=== PATIENT | male | born 1965 | race Caucasian/White ===

== ENCOUNTER 2017-11-01 10:20 | Emergency (ER) | payer OTHER ==
[~2017-11-01] VITALS: Ht 195.6 cm; Wt 154.5 kg
[~2017-11-01 10:20] MED LIST: LISI-586 PO
[2017-11-01 10:21] VITALS: BP 148/88; PULSE 132; RESP 20; TEMP 98; O2SAT 98
[2017-11-01] MEDS ORDERED: LISI-586 PO ×2 (10:40→13:51)
[2017-11-01] MEDS ORDERED: TRAM50TA PO (10:40)
[2017-11-01] MEDS ORDERED: SODIUM CHLOR 0.9% 1000 ML INJ 1,000 ML IV ONE ×3 (11:00→14:00)
--- NOTE | 2017-11-01 11:09 | PD ---
HPI Chief Complaint: General Weakness Time Seen by Provider: 10:48 Travel History International Travel<30 days: No Contact w/Intl Traveler<30days: No Traveled to known affect area: No History of Present Illness HPI 52-year-old male complaining generalized malaise and weakness. Patient states that the symptoms started this morning. Patient states that he had some fluid this morning however did not eat breakfast. Patient states that he has dry mouth. Patient has history of hypertension and has been taking lisinopril/HCTZ daily. Patient has history of chronic extremity pain and on tramadol. Patient states that he took tramadol this morning. Patient denies any illicit drug or alcohol abuse. Patient states that he drank alcohol last night. Patient denies any headache. Patient denies any visual change. Patient denies any chest pain or shortness of breath. Patient denies abdominal pain. Patient denies any nausea vomiting diarrhea. Patient denies any focal weakness or numbness of extremity. Patient denies any fever chills. PFSH Past Medical History Diminished Hearing: No Hypertension: Yes Influenza Vaccination: No Social History Alcohol Use: Yes (4-5 BEERS DAILY, QUIT ONE WEEK AGO) Tobacco Use: No Substance Use: Yes (OCC MARIJUANA) Allergies-Medications (Allergen,Severity, Reaction): Coded Allergies: No Known Allergies (Unverified Adverse Reaction, Unknown, 11/01/17) Reported Meds & Prescriptions Reported Meds & Active Scripts Active Reported Zestoretic (Lisinopril-Hctz) 20-12.5 Mg Tab 1 Tab PO DAILY Tramadol (Tramadol HCl) 50 Mg Tab 50 Mg PO Q6H PRN Review of Systems General / Constitutional: No: Fever Eyes: No: Visual changes HENT: No: Headaches Cardiovascular: No: Chest Pain or Discomfort Respiratory: No: Shortness of Breath Gastrointestinal: No: Abdominal Pain Genitourinary: No: Dysuria Musculoskeletal: No: Pain Skin: No Rash Neurologic: No: Weakness Psychiatric: No: Depression Endocrine: No: Polydipsia Hematologic/Lymphatic: No: Easy Bruising Physical Exam Narrative GENERAL: Well-nourished, well-developed patient. SKIN: Focused skin assessment warm/dry. HEAD: Normocephalic. EYES: No scleral icterus. No injection or drainage. Oral mucous membranes dry. NECK: Supple, trachea midline. No JVD or lymphadenopathy. CARDIOVASCULAR: Mild tachycardia rate and rhythm without murmurs, gallops, or rubs. RESPIRATORY: Breath sounds equal bilaterally. No accessory muscle use. GASTROINTESTINAL: Abdomen soft, non-tender, nondistended. MUSCULOSKELETAL: No cyanosis, or edema. BACK: Nontender without obvious deformity. No CVA tenderness. Neurologic exam normal. Data Data Last Documented VS Vital Signs Date Time Temp Pulse Resp B/P (MAP) Pulse Ox O2 Delivery O2 Flow Rate FiO2 11/01/17 11:14 97.6 123 20 136/80 (98) 97 Room Air Orders Orders Electrocardiogram (11/01/17 10:56) Complete Blood Count With Diff (11/01/17 10:56) Comprehensive Metabolic Panel (11/01/17 10:56) Creatine Kinase (Cpk) (11/01/17 10:56) Troponin I (11/01/17 10:56) Prothrombin Time / Inr (Pt) (11/01/17 10:56) Act Partial Throm Time (Ptt) (11/01/17 10:56) Urinalysis - C+S If Indicated (11/01/17 10:56) Thyroid Stimulating Hormone (11/01/17 10:56) Chest, Single Ap (11/01/17 10:56) Iv Access Insert/Monitor (11/01/17 10:56) Ecg Monitoring (11/01/17 10:56) Oximetry (11/01/17 10:56) Sodium Chlor 0.9% 1000 Ml Inj (Ns 1000 M (11/01/17 11:00) Sodium Chlor 0.9% 1000 Ml Inj (Ns 1000 M (11/01/17 13:00) Labs Laboratory Tests Test 11/01/17 11:00 11/01/17 13:20 White Blood Count 5.4 TH/MM3 Red Blood Count 4.52 MIL/MM3 Hemoglobin 15.5 GM/DL Hematocrit 45.7 % Mean Corpuscular Volume 101.1 FL Mean Corpuscular Hemoglobin 34.3 PG Mean Corpuscular Hemoglobin Concent 34.0 % Red Cell Distribution Width 17.8 % Platelet Count 146 TH/MM3 Mean Platelet Volume 6.8 FL Neutrophils (%) (Auto) 70.6 % Lymphocytes (%) (Auto) 21.3 % Monocytes (%) (Auto) 5.8 % Eosinophils (%) (Auto) 1.9 % Basophils (%) (Auto) 0.4 % Neutrophils # (Auto) 3.8 TH/MM3 Lymphocytes # (Auto) 1.1 TH/MM3 Monocytes # (Auto) 0.3 TH/MM3 Eosinophils # (Auto) 0.1 TH/MM3 Basophils # (Auto) 0.0 TH/MM3 CBC Comment DIFF FINAL Differential Comment Prothrombin Time 10.0 SEC Prothromb Time International Ratio 1.0 RATIO Activated Partial Thromboplast Time 25.1 SEC Blood Urea Nitrogen 7 MG/DL Creatinine 0.79 MG/DL Random Glucose 138 MG/DL Total Protein 7.7 GM/DL Albumin 3.4 GM/DL Calcium Level 9.4 MG/DL Alkaline Phosphatase 98 U/L Aspartate Amino Transf (AST/SGOT) 60 U/L Alanine Aminotransferase (ALT/SGPT) 63 U/L Total Bilirubin 0.5 MG/DL Sodium Level 133 MEQ/L Potassium Level 3.4 MEQ/L Chloride Level 98 MEQ/L Carbon Dioxide Level 23.6 MEQ/L Anion Gap 11 MEQ/L Estimat Glomerular Filtration Rate 102 ML/MIN Total Creatine Kinase 56 U/L Troponin I LESS THAN 0.02 NG/ML Thyroid Stimulating Hormone 3rd Gen 2.440 uIU/ML Urine Color YELLOW Urine Turbidity CLEAR Urine pH 5.5 Urine Specific [place] 1.006 Urine Protein NEG mg/dL Urine Glucose (UA) NEG mg/dL Urine Ketones NEG mg/dL Urine Occult Blood NEG Urine Nitrite NEG Urine Bilirubin NEG Urine Urobilinogen LESS THAN 2.0 MG/DL Urine Leukocyte Esterase SMALL Urine RBC 1 /hpf Urine WBC 3 /hpf Urine Squamous Epithelial Cells 1 /hpf Microscopic Urinalysis Comment CULT NOT INDICATED MDM Medical Decision Making Medical Screen Exam Complete: Yes Emergency Medical Condition: Yes Interpretation(s) Last Impressions Chest X-Ray 11/01/17 1056 Signed Impressions: Service Date/Time: Wednesday, November 01, 2017 11:19 - CONCLUSION: 1. No acute cardiopulmonary findings. Stable compared to prior exam. Dion David MD 12:51 PM. CBC with WBC 5.4. Hemoglobin 15.5 hematocrit 45.7. MCV 101.1. Platelet 146. 1344 PM. Sodium 133. Potassium 3.4. Cardiac enzymes are normal. Differential Diagnosis Differential diagnosis including dehydration, electrolyte abnormality, arrhythmia, viral syndrome. Narrative Course 52-year-old male with generalized malaise and weakness. Patient has mild tachycardia and oral mucous membranes are dry. Normal saline solution 1 L IV bolus. Diagnosis Primary Impression: Dehydration Patient Instructions: General Instructions Additional Instructions: Continue with blood pressure medication. Encouraged by mouth fluid. Follow-up with personal physician. Return if worse. Med/Other Pt SpecificInfo: Prescription(s) given Scripts Lisinopril-Hctz (Zestoretic) 20-12.5 Mg Tab 1 TAB PO DAILY for Blood Pressure Management, #30 TAB 0 Refills Prov: Anup Juan MD 11/01/17 Disposition: 01 DISCHARGE HOME Condition: Stable Anup Juan MD Nov 01, 2017 11:09
[2017-11-01 11:14] VITALS: BP 136/80; PULSE 123; RESP 20; TEMP 97.6; O2SAT 97
--- NOTE | 2017-11-01 11:39 | RADRPT ---
EXAM DATE/TIME: 11/01/2017 11:19 [facility] COMPARISON: CHEST PA & LAT, April 09, 2015, 13:19. INDICATIONS : Short of breath , wheezing, dizzy. MEDICAL HISTORY : Hypertension. SURGICAL HISTORY : None. ENCOUNTER: Initial ACUITY: 1 day PAIN SCORE: 0/10 LOCATION: Bilateral chest FINDINGS: A single view of the chest demonstrates the lungs to be symmetrically aerated without evidence of mas s, infiltrate or effusion. The cardiomediastinal contours are unremarkable. Osseous structures are intact. CONCLUSION: 1. No acute cardiopulmonary findings. Stable compared to prior exam. Dion David MD on November 01, 2017 at 11:36 Board Certified Radiologist. This report was verified electronically.
[2017-11-01 12:33] LABS: AUTOMATED NEUTROPHIL # 3.8 TH/MM3 (1.8-7.7); BASOPHIL % 0.4 % (0.0-2.0); EOSINOPHIL # 0.1 TH/MM3 (0-0.4); EOSINOPHIL % 1.9 % (0.0-4.0); HEMATOCRIT 45.7 % (39.0-51.0); HEMO FLAGS DIFF FINAL; LYMPH % 21.3 % (9.0-44.0); LYMPHOCYTE # 1.1 TH/MM3 (1.0-4.8); MEAN CELL VOLUME 101.1 FL (80.0-100.0); MEAN CORPUSCULAR HEMOGLOBIN 34.3 PG (27.0-34.0); MONO % 5.8 % (0.0-8.0); NEUT % 70.6 % (16.0-70.0); PLATELET COUNT 146 TH/MM3 (150-450); RED BLOOD COUNT 4.52 MIL/MM3 (4.50-5.90); RED CELL DISTRIBUTION WIDTH 17.8 % (11.6-17.2); WHITE BLOOD COUNT 5.4 TH/MM3 (4.0-11.0)
[2017-11-01 12:42] LABS: APTT (PATIENT) 25.1 SEC (24.3-30.1)
[2017-11-01 12:54] LABS: ALT (GPT) 63 U/L (12-78); ANION GAP 11 MEQ/L (5-15); AST (GOT) 60 U/L (15-37); BICARBONATE 23.6 MEQ/L (21.0-32.0); BLOOD UREA NITROGEN 7 MG/DL (7-18); CHLORIDE 98 MEQ/L (98-107); GLOMERULAR FILTRATION RATE 102 ML/MIN (>89); POTASSIUM 3.4 MEQ/L (3.5-5.1); SODIUM (NA) 133 MEQ/L (136-145)
[2017-11-01 13:01] LABS: ALKALINE PHOSPHATASE 98 U/L (45-117); TOTAL BILIRUBIN ADULT 0.5 MG/DL (0.2-1.0)
[2017-11-01 13:03] LABS: CREATINE KINASE 56 U/L (39-308)
[2017-11-01 13:40] LABS: BLOOD, URINE NEG (NEG); COMMENT (UR) CULT NOT INDICATED; CULTURE IF INDICATED CULT NOT INDICATED; GLUCOSE,URINE NEG (NEG); KETONE, URINE NEG (NEG); NITRITE,URINE NEG (NEG); PH, URINE 5.5 (5.0-8.5); SQUAMOUS EPITHELIAL CELL URINE 1 /hpf (0-5); URINE COLOR YELLOW (YELLW/STRAW)
[2017-11-01 14:40] VITALS: BP 150/81
--- NOTE | 2017-11-01 16:29 | EKG ---
Date Performed: 11/01/2017 Time Performed: 10:45:40 PTAGE: 52 years EKG: SINUS TACHYCARDIA Since previous tracing, no significant change noted ABNORMAL RHYTHM ECG PREVIOUS TRACING : 04/09/2015 12.27 DOCTOR: Zee Harper Interpretating Date/Time 11/01/2017 16:29:31
== END 2017-11-01 15:22 | disposition home or self-care (01) ==
LOC: NEPC 10:20
DX: E86.0 Dehydration (principal); R53.83 Other fatigue; R53.81 Other malaise; R00.0 Tachycardia, unspecified; I10 Essential (primary) hypertension; R94.31 Abnormal electrocardiogram [ECG] [EKG]; Z79.899 Other long term (current) drug therapy
CPT/HCPCS: 71010; 80053; 81001; 82550; 84443; 84484; 85025; 85610; 85730; 93005; 96360; 96361; 99285; J7030